=== PATIENT | male | born 1970 | race Caucasian/White ===

== ENCOUNTER 2017-11-24 19:21 | Observation (INO) ==
[2017-11-24] MEDS ORDERED: PANTOPRAZOLE 40 MG VIAL IV STA (20:35)
[2017-11-24] MEDS ORDERED: ONDANSETRON 4 MG/2 ML VIAL IV STA (20:35)
[2017-11-24] MEDS ORDERED: hydrALAZINE 20 MG/1 ML VIAL IV STA (20:38)
[2017-11-24 21:06] LABS: Basophils % 0.3 % (0.0-0.8); Eosinophils # 0.1 10*3/uL (0.0-0.87); Eosinophils % 1.3 % (0.00-10.9); Hemoglobin 13.2 GM/DL (14.0-18.0); Immature Granulocytes % 0.4 %; Immature Granulocytes Absolute 0.03 #; Lymphocytes # 1.7 10*3/uL (1.4-4.0); Lymphocytes % 21.2 % (21.2-54.2); Mean Corpuscular HGB Conc 34.7 GM/DL (32-36); Mean Corpuscular Hemoglobin 31 PG (27-34); Mean Corpuscular Volume 87.8 FL (87-102); Mean Platelet Volume 9.5 FL (9.6-12.0); Monocytes # 0.8 10*3/uL (0.11-0.8); Monocytes % 10.4 % (1.7-12.7); Neutrophils # 5.3 10*3/uL (1.4-7.4); Neutrophils % 66.4 % (38.7-73.9); Platelet Count 197 T/CUMM (130-400); Red Blood Count 4.33 MC/CUMM (3.8-5.5); Red Cell Distribution Width 12.4 % (9.3-17.3)
[2017-11-24 21:34] LABS: Alanine Aminotransferase 60 U/L (16-61); Alkaline Phosphatase 64 U/L (45-117); Aspartate Amino Transferase 37 U/L (0-37); Bilirubin,Total < 0.39 MG/DL (0.2-1.0); Blood Urea Nitrogen 17 MG/DL (7-18); Calcium 8.6 MG/DL (8.5-10.1); Glucose 95 MG/DL (74-106); Osmolality,Calculated 271.1 MOS/KG (273-304); Potassium 4.2 MMOL/L (3.5-5.1); Sodium 135 MMOL/L (136-145); Total Protein 8.2 G/DL (6.4-8.3)
[2017-11-24] MEDS ORDERED: LORazepam 2 MG/1 ML VIAL ONE (23:07)
[2017-11-25] MEDS ORDERED: levETIRAcetam 500 MG/5 ML VIAL IV ONE ×2 (00:02→00:09)
[2017-11-25] MEDS ORDERED: ACETAMINOPHEN 325 MG TABLET PO PRN (01:21)
[2017-11-25] MEDS ORDERED: hydrALAZINE 20 MG/1 ML VIAL IV PRN (01:26)
[2017-11-25] MEDS ORDERED: LISINOPRIL 10 MG TABLET PO STA (01:45)
[2017-11-25 03:05] LABS: Basophils % 0.3 % (0.0-0.8); Eosinophils # 0.1 10*3/uL (0.0-0.87); Hematocrit 35.6 VOL% (42.0-52.0); Hemoglobin 12.2 GM/DL (14.0-18.0); Immature Granulocytes % 0.4 %; Immature Granulocytes Absolute 0.03 #; Lymphocytes # 1.4 10*3/uL (1.4-4.0); Lymphocytes % 17.5 % (21.2-54.2); Mean Corpuscular HGB Conc 34.3 GM/DL (32-36); Mean Corpuscular Hemoglobin 30 PG (27-34); Mean Corpuscular Volume 88.1 FL (87-102); Mean Platelet Volume 9.3 FL (9.6-12.0); Monocytes # 0.8 10*3/uL (0.11-0.8); Monocytes % 9.7 % (1.7-12.7); Neutrophils # 5.5 10*3/uL (1.4-7.4); Neutrophils % 71.1 % (38.7-73.9); Platelet Count 186 T/CUMM (130-400); Red Blood Count 4.04 MC/CUMM (3.8-5.5); Red Cell Distribution Width 12.3 % (9.3-17.3); White Blood Count 7.8 T/CUMM (4-12)
[2017-11-25 03:19] LABS: Calcium 8.2 MG/DL (8.5-10.1); Potassium 4.2 MMOL/L (3.5-5.1)
[2017-11-25 03:29] LABS: Risk Ratio 3.82; Thyroid Stimulating Hormone 1.48 uIU/ml (0.358-3.74); VLDL CHOLESTEROL 22.2 MG/DL
[2017-11-25] MEDS ORDERED: PANTOPRAZOLE 40 MG TABLET PO SCH (09:00)
[2017-11-25] MEDS ORDERED: ENOXAPARIN 40 MG/0.4 ML SYRINGE SUBCUT SCH (09:00)
[2017-11-25] MEDS ORDERED: ASPIRIN EC 325 MG TABLET PO SCH (09:00)
[2017-11-25] MEDS ORDERED: PHENobarbital 30 MG TABLET PO SCH (12:45)
[2017-11-25] MEDS ORDERED: MELOXICAM 7.5 MG TABLET PO SCH (12:45)
[2017-11-25] MEDS ORDERED: OXcarbazepine 300 MG TABLET PO SCH (12:45)
[2017-11-25] MEDS ORDERED: risperiDONE 1 MG TABLET PO SCH ×2 (13:00→21:00)
[2017-11-25 14:06] VITALS: BP 146/100
[2017-11-25] MEDS ORDERED: BENZTROPINE 2 MG TABLET PO SCH (21:00)
[2017-11-25] MEDS ORDERED: DOXEPIN HCL PO SCH (21:00)
[2017-11-25] MEDS ORDERED: ROSUVASTATIN 20 MG TABLET PO SCH (21:00)
[2017-11-26] MEDS ORDERED: FESOTERODINE 4 MG TABLET PO SCH (09:00)
[2017-11-26] MEDS ORDERED: CITALOPRAM 20 MG TABLET PO SCH (09:00)
[2017-11-26] MEDS ORDERED: LISINOPRIL 10 MG TABLET PO SCH (09:00)
== END 2017-11-25 15:15 | disposition home or self-care (01) ==
LOC: N.ED 19:21 → N.EDINP 19:21 → SUATTDRO 11-25 01:48 → N.5E 11-25 01:54
PROVIDERS: ADMIT Internal Medicine; ATTEND Hospitalist